=== PATIENT | female | born 1995 | race Caucasian/White ===

== ENCOUNTER 2016-11-27 08:21 | Day surgery (SDC) | payer OTHER, BC ==
[2016-11-26 15:07] VITALS: BMI 19.5
[2016-11-27] MEDS ORDERED: LIDOCAINE HCL/PF 2% SDV 5ML VIAL ONE (08:58)
[2016-11-27] MEDS ORDERED: PROPOFOL 20 ML ONE ×5 (08:58)
[2016-11-27] MEDS ORDERED: PHENYLEPHRINE HCL 10 MG/1 ML SINGLE DOSE VIAL ONE (08:59)
[2016-11-27 09:50] VITALS: TEMP 97.7
[2016-11-27 12:04] VITALS: BP 118/71; PULSE 67
--- NOTE | 2016-11-30 10:08 | PATH ---
Surgical Pathology Report Patient Name: ELLEN [facility]. Rec. #: [id number] /Age/Gender: 1995 (Age: 21) / F Account: [id number] Location: [facility]-ENDOS[facility] Taken: 11/27/2016 Received: 11/27/2016 Reported: 11/30/2016 Physicians: Chauncey Meredith M.D. Specimen(s) Received A: BX SECOND PORTION OF DUODENUM AND DUODENAL BULB B: BX ANTRUM C: BX MID AND DISTAL ESOPHAGUS D: BX ILEUM E: BX CECUM F: BX TRANSVERSE COLON Clinical History Diarrhea, abdominal pain, family history of ulcerative colitis GERD, colon polyp Final Diagnosis A. DUODENUM, SECOND PORTION AND BULB, BIOPSY: DUODENAL MUCOSA WITH NO PATHOLOGIC CHANGES. NO HISTOLOGIC EVIDENCE OF GLUTEN SENSITIVE ENTEROPATHY (CELIAC SPRUE) IDENTIFIED. B. STOMACH, ANTRUM, BIOPSY: GASTRIC ANTRAL MUCOSA WITH NO PATHOLOGIC CHANGES. IMMUNOSTAIN FOR H. PYLORI IS NEGATIVE. C. MID AND DISTAL ESOPHAGUS, BIOPSY: SQUAMOUS EPITHELIUM WITH NO PATHOLOGIC CHANGES. NO EOSINOPHILIC ESOPHAGITIS IDENTIFIED. NO INTESTINAL METAPLASIA IDENTIFIED (NO MENDEZ'S IDENTIFIED). D. ILEUM, BIOPSY: SMALL INTESTINAL MUCOSA WITH NO PATHOLOGIC CHANGES. E. COLON, CECUM, BIOPSY: COLONIC MUCOSA WITH REACTIVE HYPERPLASIA OF MUCOSA ASSOCIATED LYMPHOID TISSUE. NO ACTIVE COLITIS, ARCHITECTURAL DISTORTION, GRANULOMATA, OR DYSPLASIA IDENTIFIED. NO MICROSCOPIC COLITIS IDENTIFIED (NO LYMPHOCYTIC OR COLLAGENOUS COLITIS IDENTIFIED). F. COLON, PROXIMAL TRANSVERSE, BIOPSY: COLONIC MUCOSA WITH REACTIVE FOLLICULAR HYPERPLASIA OF MUCOSA ASSOCIATED LYMPHOID TISSUE. NO ACTIVE COLITIS, ARCHITECTURAL DISTORTION, GRANULOMATA, OR DYSPLASIA IDENTIFIED. NO MICROSCOPIC COLITIS IDENTIFIED (NO LYMPHOCYTIC OR COLLAGENOUS COLITIS IDENTIFIED). Comment: The findings may indicate some form of antigenic stimulation to the GI tract. Electronically Signed Brandon Son M.D. Gross Description A. Received in formalin, labeled "biopsy second portion of duodenum and duodenal bulb" are 5 aggarwal, irregular portions of soft tissue ranging from 0.2-0.4 cm. in greatest dimension. The specimens are submitted in toto in one cassette. B. Received in formalin, labeled "biopsy antrum" are 4 aggarwal, irregular portions of soft tissue ranging from 0.2-0.6 cm. in greatest dimension. The specimens are submitted in toto in one cassette. C. Received in formalin, labeled "biopsy mid distal esophagus" are 5 aggarwal, irregular portions of soft tissue ranging from 0.1-0.3 cm. in greatest dimension. The specimens are submitted in toto in one cassette. D. Received in formalin, labeled "biopsy ileum" are 2 aggarwal, irregular portions of soft tissue measuring 0.3 and 1.0 cm. in greatest dimension. The specimens are submitted in toto in one cassette. E. Received in formalin, labeled "biopsy cecum" are 5 aggarwal, irregular portions of soft tissue ranging from 0.1-0.6 cm. in greatest dimension. The specimens are submitted in toto in one cassette. F. Received in formalin, labeled "biopsy proximal transverse colon polyp" are 4 aggarwal, irregular portions of soft tissue ranging from 0.1-0.5 cm. in greatest dimension. The specimens are submitted in toto in one cassette. 11/27/201611/27/2016
== END 2016-11-27 11:50 | disposition home or self-care (01) ==
LOC: JASU-ENDO 08:21
PROVIDERS: ATTEND Internal Medicine Gastroenterology
PROC: 0DBL8ZX Excision of Transverse Colon, Via Natural or Artificial Opening Endoscopic, Diagnostic (ICD-10-PCS; 2016-11-27)
PROC: 0DBB8ZX Excision of Ileum, Via Natural or Artificial Opening Endoscopic, Diagnostic (ICD-10-PCS; 2016-11-27)
PROC: 0DB98ZX Excision of Duodenum, Via Natural or Artificial Opening Endoscopic, Diagnostic (ICD-10-PCS; 2016-11-27)
PROC: 0DB68ZX Excision of Stomach, Via Natural or Artificial Opening Endoscopic, Diagnostic (ICD-10-PCS; 2016-11-27)
PROC: 0DB28ZX Excision of Middle Esophagus, Via Natural or Artificial Opening Endoscopic, Diagnostic (ICD-10-PCS; 2016-11-27)
PROC: 0DB38ZX Excision of Lower Esophagus, Via Natural or Artificial Opening Endoscopic, Diagnostic (ICD-10-PCS; 2016-11-27)
PROC: 0DBH8ZX Excision of Cecum, Via Natural or Artificial Opening Endoscopic, Diagnostic (ICD-10-PCS; principal; 2016-11-27 09:00)
DX: D12.3 Benign neoplasm of transverse colon (principal); K64.8 Other hemorrhoids; R19.7 Diarrhea, unspecified; K21.9 Gastro-esophageal reflux disease without esophagitis
CPT/HCPCS: 36415; 84703; 87045; 87046; 87177; 87186; 87209; 88305-TC; 88342-TC

== ENCOUNTER 2020-02-29 13:24 | Emergency (ER) | payer OTHER, BC | END 2020-02-29 14:26 | disposition home or self-care (01) | LOC: JVIRT 13:24 | DX: Z11.59 Encounter for screening for other viral diseases (principal) | CPT/HCPCS: C9803; G2012-GT; Q3014-GT; U0003 ==

== ENCOUNTER 2020-04-29 12:54 | Emergency (ER) | payer OTHER, BC | END 2020-04-29 13:25 | disposition home or self-care (01) | LOC: JVIRT 12:54 | DX: Z11.52 Encounter for screening for COVID-19 (principal) | CPT/HCPCS: C9803; G2251-GT; Q3014-GT; U0003 ==

== ENCOUNTER 2020-10-07 19:38 | Emergency (ER) | payer OTHER ==
[2020-10-09 11:09] LABS: SARS-CoV-2 NAA Not Detected (Not Detected)
== END 2020-10-07 20:37 | disposition home or self-care (01) ==
LOC: JVIRT 19:38
DX: Z11.52 Encounter for screening for COVID-19 (principal)
CPT/HCPCS: C9803; Q3014-GT; U0003; U0005

== ENCOUNTER 2023-11-24 12:41 | Emergency (ER) | payer OTHER ==
[2023-11-24 13:10] VITALS: BP 124/78; PULSE 102; RESP 18; TEMP 97.9; BMI 24.4
[2023-11-24 13:36] LABS: HCG,QUALITATIVE URINE Negative
[2023-11-24 13:51] LABS: INR 1.08 (0.83-1.09); PROTHROMBIN TIME (PATIENT) 12.3 SEC (9.7-13.0)
[2023-11-24] MEDS ORDERED: ACETAMINOPHEN INJECTION 100 ML ONE (13:51)
[2023-11-24 13:53] LABS: ACTIVATED PTT 38.2 SECONDS (25.2-36.5)
[2023-11-24 13:55] LABS: HEMATOCRIT 38.1 % (32.4-45.2); HEMOGLOBIN 12.5 G/dL (10.7-15.3); MCH 29.7 pg (25.7-33.7); MCHC 32.7 g/dl (32.0-36.0); MEAN CELL VOLUME 90.6 fl (80-96); MEAN PLT VOLUME 7.8 fl (7.5-11.1); PLATELET COUNT 227.6 10^3/uL (134-434); RDW 13.9 % (11.6-15.6); WHITE BLOOD COUNT 8.4 10^3/uL (4.0-10.8)
[2023-11-24] MEDS: ACETAMINOPHEN 1000 MG/100 ML BAG IVPB ONE (13:55)
[2023-11-24 14:01] LABS: ALBUMIN 4.9 g/dl (3.4-5.0); BILIRUBIN,TOTAL 0.5 mg/dl (0.2-1); CALCIUM 9.6 mg/dl (8.5-10.1); CREATININE 0.8 mg/dl (0.6-1.3); POTASSIUM 3.5 mmol/L (3.5-5.1); TOT PROT 7.5 g/dl (6.4-8.2)
[2023-11-24 14:12] LABS: PLATELET ESTIMATE ADEQUATE
== END 2023-11-24 15:05 | disposition home or self-care (01) ==
LOC: FER 12:41
PROC: 3E033NZ Introduction of Analgesics, Hypnotics, Sedatives into Peripheral Vein, Percutaneous Approach (ICD-10-PCS; principal; 2023-11-24)
DX: N83.202 Unspecified ovarian cyst, left side (principal); R10.2 Pelvic and perineal pain; R10.32 Left lower quadrant pain; R19.09 Other intra-abdominal and pelvic swelling, mass and lump
CPT/HCPCS: 36415; 76830-TC; 80053; 81003; 81015; 83690; 84703; 85027; 85610; 85730; 86850; 86900; 86901; 87086; 87491; 87591; 87661; 99284-25; J0131